=== PATIENT | female | born 1990 | race Caucasian/White ===

== ENCOUNTER → 2022-11-01 10:29 | Outpatient (BNVA) | payer MEDICAID, SELFPAY | PROVIDERS: PCP Registered Nurse; Visit Provider Internal Medicine | DX: E04.2 Nontoxic multinodular goiter (principal); E03.9 Hypothyroidism, unspecified | CPT/HCPCS: 99202 ==

== ENCOUNTER 2022-11-01 11:20 | Outpatient (REF) | payer MEDICAID, SELFPAY ==
[2022-11-01 13:46] LABS: Free T4 (Free Thyroxine) 0.88 ng/dL (0.71-1.85); Thyroid Stimulating Hormone 1.67 uIU/mL (0.32-4.0)
[2022-11-03 11:03] LABS: Thyroglobulin Antibodies 5 IU/mL (< or = 1); Thyroid Peroxidase Antibodies 139 IU/mL (<9)
== END 2022-11-01 11:21 | disposition home or self-care (01) ==
LOC: HO.10HDL 11:20
PROVIDERS: Visit Provider Internal Medicine
DX: E04.2 Nontoxic multinodular goiter (principal); E03.9 Hypothyroidism, unspecified
CPT/HCPCS: 36415; 84439; 84443; 86376; 86800

== ENCOUNTER 2022-12-30 08:51 | Outpatient (REF) | payer MEDICAID, SELFPAY ==
--- NOTE | 2022-12-30 09:22 | P.BOP_ITS ---
Brief Operative Note Date of Service: 12/30/22 Pre-op diagnosis: Goiter Procedure: EXAMINATION: US THYROID CLINICAL INFORMATION: Multinodular Thyroid COMPARISON: Prior TECHNIQUE: Linear transducer stewart-scale and color Doppler examination with attention to the region of the thyroid. FINDINGS: SIZE: Measurements of the thyroid lobes and nodules are given in sagittal, anteroposterior and transverse dimensions respectively. Right Thyroid Lobe: 4.6 x 1.1 x 1.45 cm, volume 3.9 mL. Parenchyma: The gland echotexture is diffusely heterogenous. Thyroid vascularity is normal. Left Thyroid Lobe: 4.2 x 1.3 x 1.3 cm, volume 3.8 mL. Parenchyma: The gland echotexture is diffusely heterogenous. Thyroid vascularity is normal. Isthmus: 0.4 cm in maximum AP dimension. There are no nodules visualized, only pseudonodules. NODES: No abnormal lymphadenopathy is seen in the tissue surrounding the thyroid gland. Surgeon: Tana Winslow, DO Was an Advanced Quality Engineer used for this Procedure?: No Estimated blood loss (mL): 0
== END 2022-12-30 08:52 | disposition home or self-care (01) ==
LOC: HO.US 08:51
PROVIDERS: PCP Registered Nurse; Visit Provider Internal Medicine
DX: E04.2 Nontoxic multinodular goiter (principal)
CPT/HCPCS: 76536

== ENCOUNTER → 2022-12-30 08:51 | Outpatient (BNV) | payer MEDICAID, SELFPAY | PROVIDERS: PCP Registered Nurse; Visit Provider Internal Medicine | DX: E04.2 Nontoxic multinodular goiter (principal) | CPT/HCPCS: 76536 ==

== ENCOUNTER 2023-02-03 15:26 | Outpatient (AMB) | payer MEDICAID, SELFPAY ==
--- NOTE | 2023-02-03 15:28 | A.OFFVIS_ITS ---
Intake Vital Signs 02/03/23 15:29 Height 5 ft 6 in Weight 182 lb 15.739 oz BMI 29.5 BP 110/74 Blood Pressure Location Lt brachial Position Sitting Pulse 68 Pulse Source Pulse Oximeter Intake Visit Reasons: FNA Results Intake Note: Patient present for FNA results office visit. Portrait Photographer Required: Yes Portrait Photographer Language: [place] Portrait Photographer Name: [id number] Information Interpreted: non-clinical & clinical Accompanied by: Self / Same As Patient Allergies Seasonal allergies Allergy (Mild, Uncoded 02/03/23 15:34) Unknown tobacco Allergy (Mild, Uncoded 02/03/23 15:34) Unknown HPI HPI Comments History of Present Illness Details 32 YO F with PMHx Multinodular thyroid w ho is seen in consultation for multinodular thyroid at the request of PCP.. The patient last saw Dr. Hassan on 08/01/2022 Visit was conducted with the aid of a Adstrix groover and turner number [id number] today. She has a longstanding history of thyroid nodules. She reports undergoing an FNA biopsy many years ago in [facility]. She does not have these results with her today. She underwent an US of the thyroid which revealed a LLP 1.1 cm thyroid nodule an d a question of a 1.5 cm L lobe parathyroid. Denies any history of head or neck irradiation. Denies any family history of thyroid cancer. She does have a history of hypothyroidism and remains on levothyroxine 50 mcg PO daily. Labs: 03/05/[address] 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 She appears to be clinically biochemically euthyroid on levothyroxine 50 mcg q.d. recent thyroid ultrasound showed the presence of pseudo nodules but no discrete nodules. At this point, patient returned to the care of her primary care provider . If she develops any significant obstructive symptoms do the goiter or hypothyroidism becomes hard to manage, she returned back tender insulation board Coding Level of Care Code Est Pt Level 3 (40473) Diagnoses Hypothyroidism E03.9
[2023-02-03 15:29] VITALS: BP 110/74; PULSE 68; BMI 29.5
== END 2023-02-03 15:56 | disposition home or self-care (01) ==
PROVIDERS: PCP Registered Nurse; Visit Provider Internal Medicine Endocrinology, Diabetes & Metabolism
DX: E03.9 Hypothyroidism, unspecified (principal)
CPT/HCPCS: 99213

== ENCOUNTER → 2023-02-03 15:26 | Outpatient (BNVA) | payer MEDICAID, SELFPAY | PROVIDERS: PCP Registered Nurse; Visit Provider Internal Medicine Endocrinology, Diabetes & Metabolism | DX: E03.9 Hypothyroidism, unspecified (principal) | CPT/HCPCS: 99212 ==